=== PATIENT | female | born 1975 | race Caucasian/White ===

== ENCOUNTER 2017-08-07 08:07 | Inpatient (IN) ==
--- NOTE | 2017-08-06 17:27 | Discharge Summary ---
Addendum entered and electronically signed by Rainer Haddad MD 08/09/17 07: 50: Discharge held secondary to pain control discharged today, acute blood loss anemia secondary diagnosis Original Note: <Rainer Haddad - Last Filed: 08/08/17 08:23> Date of Encounter: 08/08/17 Time of Encounter: 08:23 - Discharge Diagnosis (1) Status post right knee replacement Priority: Primary Status: Acute (2) Osteoarthritis of right knee Priority: Primary Status: Chronic Qualifiers: Osteoarthritis type: unspecified Qualified Code(s): M17.11 - Unilateral primary osteoarthritis, right knee (3) HTN (hypertension) Priority: Secondary Status: Chronic Qualifiers: Hypertension type: unspecified Qualified Code(s): I10 - Essential (primary ) hypertension (4) HLD (hyperlipidemia) Priority: Secondary Status: Chronic Qualifiers: Hyperlipidemia type: unspecified Qualified Code(s): E78.5 - Hyperlipidemia , unspecified (5) COPD (chronic obstructive pulmonary disease) Priority: Secondary Status: Chronic Qualifiers: COPD type: unspecified COPD Qualified Code(s): J44.9 - Chronic obstructive pulmonary disease, unspecified (6) Tobacco abuse Priority: Secondary Status: Chronic (7) Bipolar disorder Priority: Secondary Status: Chronic Qualifiers: Active/Remission status: remission status unspecified Qualified Code(s): F31.9 - Bipolar disorder, unspecified (8) OAB (overactive bladder) Priority: Secondary Status: Chronic (9) Diabetes mellitus Priority: Secondary Status: Chronic Qualifiers: Diabetes mellitus type: type 2 Diabetes mellitus complication status: with unspecified complications Diabetes mellitus assisted insulin use: without emt intermediate use Qualified Code(s): E11.8 - Type 2 diabetes mellitus with unspecified complications (10) Acute blood loss anemia Priority: Primary Status: Acute - Discharge Medications Home Medications: OxyCODONE Immed Rel [Roxicodone 5 MG] 5 mg PO Q6HR PRN 7 Days #28 tablet [Rx] Amitriptyline [Elavil] 25 mg PO HS 08/07/17 [History] Atorvastatin [Lipitor] 40 mg PO HS 08/07/17 [History] Benzonatate [Tessalon] 100 - 200 mg PO TID PRN 08/07/17 [History] Benztropine [Cogentin] 0.5 mg PO HS 08/07/17 [History] Diclofenac Sodium 1 appl TP TID PRN 08/07/17 [History] Divalproex (12 HR) [Depakote (12 HR)] 500 mg PO BID 08/07/17 [History] Doxepin HCl 75 mg PO HS 08/07/17 [History] Fexofenadine HCl [Allergy Relief] 180 mg PO DAILY 08/07/17 [History] Fluticasone Propionate Nasal [Flonase] 2 spray NS BID 08/07/17 [History] Gabapentin [Neurontin] 300 mg PO HS 08/07/17 [History] HydrOXYzine Pamoate [Vistaril] 100 mg PO QID 08/07/17 [History] Ketoconazole 2% CRM [Nizoral Cream] 1 appl TP BID 08/07/17 [History] Lurasidone HCl [Latuda] 80 mg PO HS 08/07/17 [History] Mirabegron [Myrbetriq] 50 mg PO QAM 08/07/17 [History] Mometasone/Formoterol [Dulera 100 Mcg/5 Mcg Inhaler] 2 gm IH BID 08/07/17 [ History] Montelukast [Singulair] 10 mg PO DAILY 08/07/17 [History] Naproxen 500 mg PO BID PRN 08/07/17 [History] Onabotulinumtoxina [Botox] 0 unit IJ Q3M 08/07/17 [History] Pantoprazole Sodium 40 mg PO BID 08/07/17 [History] Pregabalin [Lyrica] 100 mg PO TID 08/07/17 [History] SUMAtriptan Succinate [Imitrex] 100 mg PO DAILY PRN MDD 200MG 08/07/17 [History] Triamcinolone Acetonide [Nasacort] 2 spr NS BID 08/07/17 [History] metFORMIN [Glucophage] 500 mg PO DAILY 08/07/17 [History] raNITIdine HCl [Ranitidine HCl] 300 mg PO HS 08/07/17 [History] Allergies/Adverse Reactions: 3 Allergy/AdvReac Type Severity Reaction Status Date / Time oxybutynin Allergy Swelling Verified 08/07/17 08:31 promethazine [From Phenergan] AdvReac Vomiting Verified 08/07/17 08:31 Primary care physician: Zoya Ocampo CNP - Patient Status Disposition: Home, Self-Care Condition: Good Functional capacity at discharge: uses cane/walker Overall status at discharge: patient is progressing back to baseline - Discharge Instructions Follow Up With: Rainer Haddad MD [Partnered Physician] - 09/03/17 9:55 am Monet Washburn PAC [Physician Showcase Maker] - 08/15/17 10:15 am (& also Saturday , August 23, 2017 at 10:45 AM) Ann Mondragon MD [Partnered Physician] - 01/13/18 2:00 pm Zoya Ocampo CNP [Primary Care Provider] - 08/16/17 11:15 am Additional Instructions: Discharge Instructions: Total Knee Replacement Please call [facility] ([phone]), your Primary Care Physician, or report to the Emergency Room if you have any of the following symptoms: Nausea, vomiting, fever greater that 101.5, swelling, chest pain, shortness of breath, increased pain/redness/drainage/odor for your incision site, numbness/ tingling, or any other concerning symptoms. ACTIVITY:Weight-bearing as tolerated. You may progress off support (crutches or walker) as tolerated. MEDICATIONS: Upon discharge resume your home medications. Take all the medications as prescribed. Take a stool softener if taking narcotic pain medications. Stool softeners are only effective if you drink enough fluids. Drink 6-8 glass of water or fluids a day, unless this is not allowed for another health problem. Despite using stool softeners, if you haven't had a bowel movement in 3 days, please switch to a gentle laxative. Gentle laxatives are sold over the counter. You should have a bowel movement within 24 hours, if not call the office. You will be discharged from the hospital with a prescription for pain medication. You are encouraged to decrease the use of narcotic pain medication as tolerated. Should you require a refill, please call the office. [facility] prescribes narcotic pain medication for only 4-6 weeks after surgery. If you require pain medication beyond this time period, you may be referred to your Primary Care Physician or to the Pain Clinic for further evaluation. Plan ahead for refills on pain medication as many narcotics either need to be picked up at the office or mailed. It is best to call 48-72 hours in advance of needing a prescription refill so you don't run out of medication. To help control the post-operative pain, you may take NSAIDs (Aleve,Advil, Motrin, Ibuprofen, Naprosyn) or Tylenol as prescribed on the bottle in addition to the pain medication. ANTICOAGULATION (blood thinners): Continue your Aspirin, Lovenox or Coumadin as prescribed to help prevent a blood clot in the leg or in the lungs. As long as your incision remains dry and you tolerate the NSAIDs (Aleve, Advil, Motrin, ibuprofen, naprosyn), it is OK to use the NSAIDS while you are taking your anticoagulation medication. Should your incision start to drain, stop the NSAID and contact our office. Common symptoms of blood clot in the legs include: localized pain, swelling, calf tenderness, redness or discoloration of the skin. Blood clot in the lung symptoms include: shortness of breath, rapid pulse, sweating, and chest pain that worsens with deep breathing, coughing up blood, lightheadedness, feelings of anxiety. If you experience any of these symptoms notify your physician immediately, go to the emergency room, or if having trouble breathing, call 911. WOUND CARE: Leave the dressing on for 7 to 10days. You may change the dressing if it becomes saturated greater than 50%. Do not get the dressing wet at anytime. Wash your hands with antibacterial soap, rinse and dry prior to any wound care. If you have hero the visiting nurse or rehab facility can remove the stapes 10-14 days after surgery and place steri-strips across the wound. Leave the steri-strips in place until they fall off on their won. You may let water from the shower run on top of the steri-strips. If you do not have a visiting nurse or rehab facility, you will need to return to the office at 10-14 days for the hero to be removed. If you have itching or redness around the dressing call the office. FOLLOW-UP: Please follow up with your surgeon in the orthopedic clinic in 4 weeks from the day of surgery. If you have hero that need to be removed, you will need to come back to the office in 10-14 days from the day of surgery. - Hospital Course Hospital course: Ms. Velasquez is a 42 year old female Status post right total knee replacement, hemoglobin 10.0 asymptomatic. The patient had an uneventful postoperative course. They received antibiotics and physical therapy and were discharged in stable condition. There will follow -up in the office in 2 weeks. - Time Spent with Patient Total time spent providing and/or coordinating discharge services: <Megan Berg - Last Filed: 08/09/17 19:26> Date of Encounter: 08/09/17 - Discharge Diagnosis (1) Osteoarthritis of right knee Priority: Primary Status: Chronic Qualifiers: Osteoarthritis type: unspecified Qualified Code(s): M17.11 - Unilateral primary osteoarthritis, right knee (2) HTN (hypertension) Priority: Secondary Status: Chronic Qualifiers: Hypertension type: unspecified Qualified Code(s): I10 - Essential (primary ) hypertension (3) HLD (hyperlipidemia) Priority: Secondary Status: Chronic Qualifiers: Hyperlipidemia type: unspecified Qualified Code(s): E78.5 - Hyperlipidemia , unspecified (4) COPD (chronic obstructive pulmonary disease) Priority: Secondary Status: Chronic Qualifiers: COPD type: unspecified COPD Qualified Code(s): J44.9 - Chronic obstructive pulmonary disease, unspecified (5) Tobacco abuse Priority: Secondary Status: Chronic (6) Bipolar disorder Priority: Secondary Status: Chronic Qualifiers: Active/Remission status: remission status unspecified Qualified Code(s): F31.9 - Bipolar disorder, unspecified (7) OAB (overactive bladder) Priority: Secondary Status: Chronic (8) Diabetes mellitus Priority: Secondary Status: Chronic Qualifiers: Diabetes mellitus type: type 2 Diabetes mellitus complication status: with unspecified complications Diabetes mellitus emt intermediate insulin use: without assisted use Qualified Code(s): E11.8 - Type 2 diabetes mellitus with unspecified complications Primary care physician: Zoya Ocampo CNP - Hospital Course Hospital course: Ms. Velasquez is a 42 year old female - Time Spent with Patient Total time spent providing and/or coordinating discharge services: - VTE Documentation of Mechanical Device: Venous foot pump, device
--- NOTE | 2017-08-07 08:14 | History & Physical Report ---
Date of Encounter: 08/07/17 Time of Encounter: 08:13 24 Hour HP Update - Instructions Instructions: If the History and Physical is less than 30 days old and was completed prior to A.M. admission and or procedure and has NOT been updated on calendar day of procedure please complete this update prior to performing procedure. - Update Patient reports changes in Medical Condition: No Changes in examination, assessment, or condition: No Changes in Medication: No Preop tests/diagnostics Reviewed: Yes Surgery Remains Indicated: Yes Consent for Planned Operative Procedure(s) Verified: Yes - Pre-Operative Checklist Preoperative Checklist Indicated: No Prophylactic Antibiotic Ordered: Yes Is VTE Prophylaxis Indicated?: Yes
[2017-08-07] MEDS ORDERED: Lidocaine -MPF 4% 5 ML AMPUL ONE (08:18)
[2017-08-07] MEDS ORDERED: Lidocaine -MPF 2% 2 ML VIAL ONE (08:18)
[2017-08-07] MEDS ORDERED: *HR* FentaNYL (PF) 100 MCG/2 ML VIAL ONE (08:18)
[2017-08-07] MEDS ORDERED: Ondansetron 4 MG/2 ML VIAL ONE (08:18)
[2017-08-07] MEDS ORDERED: Dexamethasone 4 MG/ML VIAL ONE (08:18)
[2017-08-07] MEDS ORDERED: *HR* Propofol 200 MG/20 ML VIAL IVP ONE (08:19)
[2017-08-07] MEDS ORDERED: CeFAZolin Pre 2,000 MG/100 ML 2,000 MG/100 ML BAG IVPB ONE (08:36)
[2017-08-07] MEDS ORDERED: Lidocaine -MPF 1% 2 ML VIAL ID ONE (08:36)
[2017-08-07] MEDS ORDERED: Albuterol 2.5 MG/3 ML NEBULIZER IH ONE (08:36)
[2017-08-07] MEDS ORDERED: Ringers Solution, Lactated 1,000 ML IVC SCH ×2 (08:45→12:56)
--- NOTE | 2017-08-07 08:47 | Anesthesia Evaluation PreOp ---
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: Denies Any Significant HX Other Medical History: Diabetes Type II, GERD, Other (bipolar) Anesthesia History: No Prior Anesthetic Complications, Past Anesthesia Test: Negative (08/07/2017) Alcohol Use: none Drug use: none Medications and Allergies OxyCODONE Immed Rel [Roxicodone 5 MG] 5 mg PO Q6HR PRN 7 Days #28 tablet [Rx] Amitriptyline [Elavil] 25 mg PO HS 08/07/17 [History] Atorvastatin [Lipitor] 40 mg PO HS 08/07/17 [History] Benzonatate [Tessalon] 100 - 200 mg PO TID PRN 08/07/17 [History] Benztropine [Cogentin] 0.5 mg PO HS 08/07/17 [History] Diclofenac Sodium 1 appl TP TID PRN 08/07/17 [History] Divalproex (12 HR) [Depakote (12 HR)] 500 mg PO BID 08/07/17 [History] Doxepin HCl 75 mg PO HS 08/07/17 [History] Fexofenadine HCl [Allergy Relief] 180 mg PO DAILY 08/07/17 [History] Fluticasone Propionate Nasal [Flonase] 2 spray NS BID 08/07/17 [History] Gabapentin [Neurontin] 300 mg PO HS 08/07/17 [History] HydrOXYzine Pamoate [Vistaril] 100 mg PO QID 08/07/17 [History] Ketoconazole 2% CRM [Nizoral Cream] 1 appl TP BID 08/07/17 [History] Lurasidone HCl [Latuda] 80 mg PO HS 08/07/17 [History] Mirabegron [Myrbetriq] 50 mg PO QAM 08/07/17 [History] Mometasone/Formoterol [Dulera 100 Mcg/5 Mcg Inhaler] 2 gm IH BID 08/07/17 [ History] Montelukast [Singulair] 10 mg PO DAILY 08/07/17 [History] Naproxen 500 mg PO BID PRN 08/07/17 [History] Onabotulinumtoxina [Botox] 0 unit IJ Q3M 08/07/17 [History] Pantoprazole Sodium 40 mg PO BID 08/07/17 [History] Pregabalin [Lyrica] 100 mg PO TID 08/07/17 [History] SUMAtriptan Succinate [Imitrex] 100 mg PO DAILY PRN MDD 200MG 08/07/17 [History] Triamcinolone Acetonide [Nasacort] 2 spr NS BID 08/07/17 [History] metFORMIN [Glucophage] 500 mg PO DAILY 08/07/17 [History] raNITIdine HCl [Ranitidine HCl] 300 mg PO HS 08/07/17 [History] 3 Allergy/AdvReac Type Severity Reaction Status Date / Time oxybutynin Allergy Swelling Verified 08/07/17 08:31 promethazine [From Phenergan] AdvReac Vomiting Verified 08/07/17 08:31 - Meds/Allergy Pre-op Review Medications Reviewed: Yes Allergies Reviewed: Yes Beta Blockers on Current Med List: No Anesthesia Results - Labs Laboratory Tests 07/29/17 07/29/17 07/29/17 11:52 11:52 11:52 WBC 9.5 Hgb 13.3 Hct 38.8 Plt Count 333 PT 10.6 INR 1.0 APTT 36.9 H Sodium 141 Potassium 4.5 BUN 8 Creatinine 0.99 Serum , Qual 07/29/17 11:52 WBC Hgb Hct Plt Count PT INR APTT Sodium Potassium BUN Creatinine Serum , Qual Negative - Imaging EKG: report reviewed (07/29/2017 SINUS RHYTHM POSSIBLE RIGHT VENTRICULAR CONDUCTION DELAY) Anesthesia Exam O2 Sat Height 1.6 m Height 1.6 m Height 1.6 m Weight 68.039 kg Weight 68.039 kg Weight 68.039 kg O2 Sat by Pulse Oximetry 95 Vital Signs Temp Pulse Resp BP Pulse Ox 98.4 F 98 18 115/73 95 08/07/17 09:10 08/07/17 09:10 08/07/17 09:10 08/07/17 09:10 08/07/17 09:10 Blood glucose: 73 Height: 5'3'' Weight: 150 lbs NPO (# of Hours): 8 Pain Scale: 4 Pain Scale Used: Numeric (1 - 10) - HEENT Pupil (Motor): EOMI Mallampati: II Teeth: Edentulous Oral Opening: Greater than 3 - VIROLOGY TEACHER LOC: Oriented VIROLOGY TEACHER Motor: Normal RUE, Normal LUE, Normal LLE, Normal Face, Deficit RLE VIROLOGY TEACHER Sensory: Normal: RUE, LUE, RLE, LLE, Face - Cardiac Rhythm: Regular Murmur: None - Pulmonary Breath Sounds: bilateral Clear Respiratory Effort: Symmetrical Anesthesia Assess/Plan ASA Score: 3 Modified Nicolás Scale for Level of Consciousness: Cooperative, oriented, and tranquil Anesthetic Plan: General, Regional Monitoring Plan: Standard Monitors Recovery Plan: PACU
[2017-08-07] MEDS ORDERED: ROPIVACAINE HCL/PF 0.5% 30 ML VIAL ONE (09:50)
[2017-08-07] MEDS ORDERED: Bupivacaine/Clonidine Syringe 1 EACH SYRINGE ONE (09:50)
[2017-08-07] MEDS ORDERED: Ethanol\\Acetic Acid\\Na Ace\\Ben 1,000 ML IRRIG.SOLN IR ONE (09:56)
--- NOTE | 2017-08-07 10:08 | Anesthesia Procedures ---
Date of Encounter: 08/07/17 Time of Encounter: 09:50 Procedures: Anesthesia - Nerve Block Procedure Date: 08/07/17 Time: 09:50 Allergies/Adv Reactions: Allergies Allergy/AdvReac Type Severity Reaction Status Date / Time oxybutynin Allergy Swelling Verified 08/07/17 08:31 promethazine [From Phenergan] AdvReac Vomiting Verified 08/07/17 08:31 Pre-op Diagnosis: Right Knee Arthritis Surgical Procedure: Right Total Knee Arthroplasty Checklist: Correct Patient Identifier, Correct procedure, History checked Correct side: Right Blood Thinner: No Monitor Applied: EKG, BP, Pulse Oximetry Supplemental Oxygen via Nasal Cannula (L/min): 2 Sedation: Versed (mg): 2 Sedation: Fentanyl (mcg): 100 Indication: Post Op Analgesia Pre-op Neuro Deficits: No Block Type: Femoral, Other (iPack) Catheter placed: No Sterile Technique: Yes Ultrasound used: Yes Anatomy identified: Yes Visual spread of Local: Yes Neuro Stimulation: Yes Nerve Stimulator Range: 0.2 - 0.4 mA Blood on Needle Aspiration: No Smooth Injection of Local: Yes Pain with Injection of Local: No Prep: Chlorhexadine Needle: 22 x 50 mm Stimuplex (Femoral), 21 x 100 mm Stimuplex (Ipack) Local: 0.25% Bupivicaine w/Clonidine 20 mcg/cc (20mL iPack), Ropivacaine (0.5% 30mL) Volume (cc): 50 Number of Attempts: 1 Complications: None/effective block Vitals: VSS throughout. See nursing documentation. Comments: Verbal order Dr Haddad for post op pain management. Patient tolerated well.
[2017-08-07] MEDS ORDERED: Ondansetron 4 MG/2 ML VIAL IVP PRN ×2 (10:12→12:56)
[2017-08-07] MEDS ORDERED: *HR* Meperidine 25 MG/ML SYRINGE IVP PRN (10:12)
[2017-08-07] MEDS ORDERED: Naloxone 0.4 MG/ML INJ IVP PRN ×2 (10:12→12:56)
[2017-08-07] MEDS ORDERED: *HR* Succinylcholine 200 MG/10 ML VIAL IVP ONE (10:58)
[2017-08-07] MEDS ORDERED: *HR* HYDROmorphone 2 MG/ML SYRINGE ONE (11:01)
--- NOTE | 2017-08-07 11:24 | Orthopedic Operative Note ---
Date of procedure: 08/07/17 Pre-op diagnosis: Right knee arthritis Post-op diagnosis: same Procedure: Procedure: Right Total knee replacement Estimated blood loss: 200 cc Hardware: Metal and polyethylene replacement. Arthrex Femur: 3 Tibia: 2 PS insert: 9 Patella: 30 Exam Under anesthesia: Full flexion and extension no instability Procedural Notes: Grade 3 arthritic changes patellofemoral joint medial compartment Operative procedure: The patient was brought to the operating room and placed on the operating room table. After general anesthesia was administered the operative knee was examined. Findings were noted in the exam under anesthesia. The operative extremity was prepped and draped in sterile surgical fashion. The patient received IV antibiotics prior to skin incision. A standard midline incision was made centered over the patella. The incision was made through the skin and subcutaneous tissue. A medial parapatellar tendon approach was performed. Care was taken to preserve tissue along the medial aspect of the patella. And to protect the patella tendon. The deep MCL was released off the medial tibia. The infra patella fat pad was excised. Knee was brought into flexion. The patient was noted to have grade 3 arthritic changes patellofemoral joint medial compartment. The entry hole was made for the intramedullary femoral guide. The guide was seated in 6 degrees of valgus. Anterior cut was made followed by the distal cut. The ACL the PCL the medial and the lateral menisci were excised. The tibia was subluxed forward. The entry hole was made for the intramedullary tibial guide. Guide was seated to resect 2 mm off the more abnormal side. The knee was brought into flexion the distal femur was sized to a 3. The femoral guide was seated, the anterior cut was made followed by the posterior condylar cut, followed by the chamfer cuts. The finishing guide was seated the box cut was made and the lug holes were drilled. The tibia was sized to a 2, the tibial tray was seated and prepared with the large drill followed by the fin cutter. Trial reduction revealed full extension no varus valgus instability with the appropriate 9 PS Kayleigh. The patella was everted and cut was made at the level of the insertion of the quadriceps and patella tendon. The patella was sized 30 the guide was seated and the lug holes are drilled. Trial reduction revealed excellent patella tracking. All trial components were removed all bony surfaces were irrigated. The tibia was cemented first followed by the femur. The 9 PS Kayleigh was seated and the knee was brought into full extension. The patella was cemented and held in place with the patellar holding clamp. After the cement had hardened, the knee sat for 2 minutes with a Betadine saline solution. The knee was closed by the PA. The knee was then irrigated out with 2 L of pulse irrigation. The extensor mechanism was closed with #2 FiberWire suture and #2 PDS suture. The subcutaneous tissue was then irrigated and closed deep with #1 PDS suture superficially with 0 PDS suture and skin was closed with skin hero. The patient was then placed in a sterile dressing and a postoperative brace extubated and transferred to recovery room in stable condition. Anesthesia: GETA Surgeon: Rainer Haddad Condition: stable Disposition: PACU
[2017-08-07] MEDS: *HR* HYDROmorphone (PF) 1 MG/ML SYRINGE IVP PRN ×3 (12:25→13:36)
--- NOTE | 2017-08-07 12:50 | Anesthesia Evaluation Post Op ---
Date of Encounter: 08/07/17 Time of Encounter: 12:50 - Vital Signs Vital Signs: Vital Signs/O2 Sat/Glucose, Most Recent Temp Pulse Resp BP Pulse Ox 98.3 F 116 12 97/77 96 08/07/17 12:30 08/07/17 12:40 08/07/17 12:40 08/07/17 12:40 08/07/17 12:40 Blood Glucose* 103 - Lungs Lungs: Clear Ascult./Percussion - Airway Airway: Non-obstructed - Cardiovascular Regular Rate - Mental Status Mental Status: Alert & Oriented, Answers Appropriately - Pain Pain Scale: 3 Pain Scale used: Numeric (1 - 10) - Nausea Vomiting Nausea Vomiting: Not Present - Hydration Hydration: Tolerates oral liquids - Discharge PostOp Status: Discharge Patient to home
[2017-08-07] MEDS ORDERED: Dextrose Gel 15 GM PO PRN ×2 (12:56)
[2017-08-07] MEDS ORDERED: *HR* OxyCODONE Immed Rel 5 MG TABLET PO PRN (12:56)
[2017-08-07] MEDS ORDERED: SUMAtriptan succinate 50 MG TABLET PO PRN (12:56)
[2017-08-07] MEDS ORDERED: Benzonatate 100 MG CAPSULE PO PRN (12:56)
[2017-08-07] MEDS ORDERED: *HR* Dextrose 50 % in Water (Syg) 50 ML SYRINGE IVP PRN (12:56)
[2017-08-07] MEDS ORDERED: D5% in Water 1,000 ML IVC PRN (12:56)
[2017-08-07] MEDS: hydrOXYzine pamoate 25 MG CAPSULE PO SCH ×3 (13:36→22:52)
[2017-08-07] MEDS: Insulin LISPRO 300 UNITS/3 ML VIAL SQ SCH ×3 (13:37→21:22)
[2017-08-07 13:54] LABS: Hematocrit 34.9 % (35.3-44.9); Hemoglobin 11.9 g/dL (11.5-15.4)
[2017-08-07] MEDS: Pregabalin 50 MG CAPSULE PO SCH ×2 (15:02→20:56)
[2017-08-07] MEDS: *HR* Enoxaparin 30 MG/0.3 ML SYRINGE SQ SCH (16:26)
[2017-08-07] MEDS: ceFAZolin 2,000 MG in D5% in Water 100 ML IVPB SCH ×2 (16:27→23:07)
[2017-08-07] MEDS: [UNRECOGNIZED DRUG - MIXTURE] TP SCH ×2 (16:28→21:06)
[2017-08-07] MEDS: *HR* OxyCODONE Immed Rel 5 MG TABLET PO PRN ×2 (16:46→22:27)
[2017-08-07] MEDS ORDERED: *HR* Enoxaparin 30 MG/0.3 ML SYRINGE SQ SCH (18:00)
[2017-08-07] MEDS: Chloraseptic Spray 177 ML BOTTLE MM PRN (18:36)
[2017-08-07] MEDS: Famotidine 20 MG TABLET PO SCH (20:56)
[2017-08-07] MEDS: Gabapentin 300 MG CAPSULE PO SCH (20:57)
[2017-08-07] MEDS: Divalproex (12 HR) 500 MG TABLET PO SCH (20:57)
[2017-08-07] MEDS ORDERED: Sennosides 8.6 MG TABLET PO PRN (21:00)
[2017-08-07] MEDS ORDERED: Temazepam 15 MG CAPSULE PO PRN (21:00)
[2017-08-07] MEDS ORDERED: MOM Conc 10 ML UD.LIQ PO PRN (21:00)
[2017-08-07] MEDS: Fluticasone Propionate Nasal 50 MCG/SPRAY BOTTLE NS SCH ×2 (21:01→22:30)
[2017-08-07] MEDS: Ketoconazole 2% CRM 15 GM TUBE TP SCH (21:02)
[2017-08-07] MEDS: Ipratropium/Albuterol Neb 3 ML IH SCH (21:20)
[2017-08-08] MEDS: Ipratropium/Albuterol Neb 3 ML IH SCH ×4 (03:30→21:47)
[2017-08-08] MEDS: *HR* OxyCODONE Immed Rel 5 MG TABLET PO PRN ×4 (04:02→21:33)
[2017-08-08 05:06] LABS: Hematocrit 29.8 % (35.3-44.9)
[2017-08-08 05:17] LABS: BUN/Creatinine Ratio 14 (6-26); Blood Urea Nitrogen 13 mg/dL (7-20); Calcium 9.2 mg/dL (8.6-10.8); Carbon Dioxide 26 mEq/L (19-29); Chloride 100 mEq/L (98-109); Glucose 113 mg/dL (70-99); Osmolality,Calculated 285 (280-300); Potassium 4.7 mEq/L (3.5-4.5); Sodium 137 mEq/L (136-145); eGFR For African Americans > 60 (> 60); eGFR For Non-African Americans > 60 (> 60)
[2017-08-08] MEDS: *HR* Enoxaparin 30 MG/0.3 ML SYRINGE SQ SCH ×2 (05:43→17:03)
[2017-08-08] MEDS: Insulin LISPRO 300 UNITS/3 ML VIAL SQ SCH ×4 (08:21→21:37)
--- NOTE | 2017-08-08 08:25 | Orthopedics Progress Note ---
Date of Encounter: 08/08/17 Time of Encounter: 08:24 - Assessment and Plan (1) Status post right knee replacement Current Visit: Yes Status: Acute (2) Osteoarthritis of right knee Current Visit: No Status: Chronic Qualifiers: Osteoarthritis type: unspecified Qualified Code(s): M17.11 - Unilateral primary osteoarthritis, right knee (3) HTN (hypertension) Current Visit: No Status: Chronic Qualifiers: Hypertension type: unspecified Qualified Code(s): I10 - Essential (primary ) hypertension (4) HLD (hyperlipidemia) Current Visit: No Status: Chronic Qualifiers: Hyperlipidemia type: unspecified Qualified Code(s): E78.5 - Hyperlipidemia , unspecified (5) COPD (chronic obstructive pulmonary disease) Current Visit: No Status: Chronic Qualifiers: COPD type: unspecified COPD Qualified Code(s): J44.9 - Chronic obstructive pulmonary disease, unspecified (6) Tobacco abuse Current Visit: No Status: Chronic (7) Bipolar disorder Current Visit: No Status: Chronic Qualifiers: Active/Remission status: remission status unspecified Qualified Code(s): F31.9 - Bipolar disorder, unspecified (8) OAB (overactive bladder) Current Visit: No Status: Chronic (9) Diabetes mellitus Current Visit: No Status: Chronic Qualifiers: Diabetes mellitus type: type 2 Diabetes mellitus complication status: with unspecified complications Diabetes mellitus intermediate manager insulin use: without intermediate manager use Qualified Code(s): E11.8 - Type 2 diabetes mellitus with unspecified complications (10) Acute blood loss anemia Current Visit: Yes Status: Acute Subjective Interval history: Patient was seen this morning doing well without complaints. Afebrile vital signs stable. Operative extremity: Neurovascularly intact Dressing clean dry and intact Calves nontender Assessment and plan: Continue with postoperative care Hemoglobin 10 discharged today Objective Vital signs: Vital Signs Temp Pulse Resp BP Pulse Ox 08/08/17 07:29 97.9 F 113 16 111/75 92 08/08/17 03:58 97.9 F 106 18 127/82 93 08/07/17 23:05 98.4 F 108 18 122/78 93 08/07/17 21:23 18 90 08/07/17 20:56 93 08/07/17 18:51 98 F 110 18 135/75 93 08/07/17 16:00 98.4 F 114 18 112/75 93 08/07/17 15:07 98.2 F 119 18 114/65 91 08/07/17 14:27 97.5 F L 114 18 107/74 94 08/07/17 13:31 98.2 F 117 18 112/69 95 08/07/17 13:07 98.1 F 117 16 118/78 93 08/07/17 13:06 98.1 F 117 16 118/78 91 08/07/17 12:50 97.4 F L 112 11 117/85 95 08/07/17 12:40 116 12 97/77 96 08/07/17 12:30 98.3 F 112 14 119/85 97 08/07/17 12:20 115 12 131/88 95 08/07/17 12:10 117 19 126/75 94 08/07/17 12:00 98.7 F 112 16 129/98 100 08/07/17 10:07 102 17 110/73 99 08/07/17 09:35 102 15 118/80 91 08/07/17 09:10 98.4 F 98 18 115/73 95 Intake and Output 08/07/17 08/08/17 08/08/17 23:59 07:59 15:59 Intake Total 600 / 600 1999 / 2000 Output Total 1400 / 1400 400 / 400 Balance -800 / -800 1600 / 1600 Intake: IV Fluids 600 / 600 Lactated Ringers 1,000 ML @ 25 400 / 400 mls/hr IVC .Q24H ROX Rx#: [id number] Ancef 2,000 MG In Dextrose 5% 200 / 200 100 ML @ 200 mls/hr IVPB Q8HR ROX Rx#:[id number] Oral 0 / 0 1999 / 1999 Output: Urine 1400 / 1400 400 / 400 Other: Weight 70 kg Blood Glucose* 176 72 Patient Weight 08/08/17 23:59 Weight 70 kg - Labs CBC & BMP: 08/08/17 04:41 08/08/17 04:41 Labs: Abnormal lab results Hgb 10.0 g/dL (11.5-15.4) L D 08/08/17 04:41 Hct 29.8 % (35.3-44.9) L 08/08/17 04:41 Potassium 4.7 mEq/L (3.5-4.5) H 08/08/17 04:41 Glucose 113 mg/dL (70-99) H 08/08/17 04:41 POC Glucose 176 (58-89) H 08/07/17 20:30 - VTE Documentation of Mechanical Device: Venous foot pump, device Consult Discharge Plan - Plan Referrals: Zoya Ocampo CNP [Primary Care Provider] -
[2017-08-08] MEDS: hydrOXYzine pamoate 25 MG CAPSULE PO SCH ×4 (09:04→21:27)
[2017-08-08] MEDS: *HR* Metformin 500 MG TABLET PO SCH (09:05)
[2017-08-08] MEDS: Pregabalin 50 MG CAPSULE PO SCH ×3 (09:06→21:25)
[2017-08-08] MEDS: Loratadine 10 MG TABLET PO SCH (09:07)
[2017-08-08] MEDS: Divalproex (12 HR) 500 MG TABLET PO SCH ×2 (09:07→21:26)
[2017-08-08] MEDS: Fluticasone Propionate Nasal 50 MCG/SPRAY BOTTLE NS SCH ×4 (09:13→21:48)
[2017-08-08] MEDS: Ketoconazole 2% CRM 15 GM TUBE TP SCH ×2 (09:14→21:49)
[2017-08-08] MEDS: [UNRECOGNIZED DRUG - MIXTURE] TP SCH ×4 (09:14→21:49)
[2017-08-08] MEDS: (Mirabegron [Myrbetriq] 50 MG) PO SCH (09:15)
[2017-08-08] MEDS: *HR* HYDROmorphone (PF) 1 MG/ML SYRINGE IVP PRN ×2 (10:47→17:03)
[2017-08-08] MEDS: Chloraseptic Spray 177 ML BOTTLE MM PRN (11:00)
--- NOTE | 2017-08-08 16:59 | Event Note ---
Date of Encounter: 08/08/17 Time of Encounter: 13:00 PCR - Right TKR 08/07 Labs: Stable, monitoring H/H Patient seen at bedside. Pain control: Continues IV pain medication. Participating in PT. All questions and concerns addressed. Educated on use of incentive spirometer, ambulation, and hydration. Patient educated on post-operative restrictions and care. Addressed: See above D/C plan: Home Health - established, continuity completed Patient wanting to go home today; however due to her pain level; she will stay tonight and D/C tomorrow AM after PT.
[2017-08-08] MEDS: Famotidine 20 MG TABLET PO SCH (21:26)
[2017-08-08] MEDS: Gabapentin 300 MG CAPSULE PO SCH (21:26)
[2017-08-09 04:04] LABS: Hemoglobin 8.9 g/dL (11.5-15.4)
[2017-08-09 04:05] LABS: BUN/Creatinine Ratio 12 (6-26); Blood Urea Nitrogen 10 mg/dL (7-20); Calcium 8.8 mg/dL (8.6-10.8); Carbon Dioxide 27 mEq/L (19-29); Chloride 100 mEq/L (98-109); Glucose 109 mg/dL (70-99); Osmolality,Calculated 282 (280-300); Potassium 3.5 mEq/L (3.5-4.5); Sodium 136 mEq/L (136-145); eGFR For African Americans > 60 (> 60); eGFR For Non-African Americans > 60 (> 60)
[2017-08-09] MEDS: Ipratropium/Albuterol Neb 3 ML IH SCH ×4 (04:26→22:30)
[2017-08-09] MEDS: *HR* Enoxaparin 30 MG/0.3 ML SYRINGE SQ SCH ×2 (05:08→17:03)
[2017-08-09] MEDS: *HR* OxyCODONE Immed Rel 5 MG TABLET PO PRN ×4 (05:09→23:43)
--- NOTE | 2017-08-09 07:52 | Orthopedics Progress Note ---
Date of Encounter: 08/09/17 Time of Encounter: 07:51 - Assessment and Plan (1) Status post right knee replacement Current Visit: Yes Status: Acute (2) Osteoarthritis of right knee Current Visit: No Status: Chronic Qualifiers: Osteoarthritis type: unspecified Qualified Code(s): M17.11 - Unilateral primary osteoarthritis, right knee (3) HTN (hypertension) Current Visit: No Status: Chronic Qualifiers: Hypertension type: unspecified Qualified Code(s): I10 - Essential (primary ) hypertension (4) HLD (hyperlipidemia) Current Visit: No Status: Chronic Qualifiers: Hyperlipidemia type: unspecified Qualified Code(s): E78.5 - Hyperlipidemia , unspecified (5) COPD (chronic obstructive pulmonary disease) Current Visit: No Status: Chronic Qualifiers: COPD type: unspecified COPD Qualified Code(s): J44.9 - Chronic obstructive pulmonary disease, unspecified (6) Tobacco abuse Current Visit: No Status: Chronic (7) Bipolar disorder Current Visit: No Status: Chronic Qualifiers: Active/Remission status: remission status unspecified Qualified Code(s): F31.9 - Bipolar disorder, unspecified (8) OAB (overactive bladder) Current Visit: No Status: Chronic (9) Diabetes mellitus Current Visit: No Status: Chronic Qualifiers: Diabetes mellitus type: type 2 Diabetes mellitus complication status: with unspecified complications Diabetes mellitus test skein winder insulin use: without test skein winder use Qualified Code(s): E11.8 - Type 2 diabetes mellitus with unspecified complications (10) Acute blood loss anemia Current Visit: Yes Status: Acute Subjective Interval history: Patient was seen this morning doing well without complaints. Afebrile vital signs stable. Operative extremity: Neurovascularly intact Dressing clean dry and intact Calves nontender Assessment and plan: Continue with postoperative care Hemoglobin 8.9 charge held yesterday secondary to pain control, discharged today Objective Vital signs: Vital Signs Temp Pulse Resp BP Pulse Ox 08/09/17 07:30 98.4 F 122 14 124/85 95 08/09/17 04:27 17 91 08/09/17 00:16 98.4 F 125 20 117/80 91 08/08/17 19:54 97.9 F 128 18 129/79 91 08/08/17 16:49 97.1 F L 89 16 129/79 96 08/08/17 12:39 97.7 F 96 14 118/71 93 08/08/17 11:05 16 90 Intake and Output 08/08/17 08/08/17 08/09/17 15:59 23:59 07:59 Intake Total 500 / 500 560 / 560 50 / 50 Output Total 450 / 450 Balance 50 / 50 560 / 560 50 / 50 Intake: Oral 500 / 500 560 / 560 50 / 50 Output: Urine 450 / 450 Other: Meal Dinner Percent of Meal Consumed 75% # Voids 1 Blood Glucose* 59 198 118 - Labs CBC & BMP: 08/09/17 03:35 08/09/17 03:35 Labs: Abnormal lab results Hgb 8.9 g/dL (11.5-15.4) L 08/09/17 03:35 Hct 26.0 % (35.3-44.9) L 08/09/17 03:35 Glucose 109 mg/dL (70-99) H 08/09/17 03:35 - VTE Documentation of Mechanical Device: Venous foot pump, device Consult Discharge Plan - Plan Additional Instructions: Discharge Instructions: Total Knee Replacement Please call [facility] ([phone]), your Primary Care Physician, or report to the Emergency Room if you have any of the following symptoms: Nausea, vomiting, fever greater that 101.5, swelling, chest pain, shortness of breath, increased pain/redness/drainage/odor for your incision site, numbness/ tingling, or any other concerning symptoms. ACTIVITY:Weight-bearing as tolerated. You may progress off support (crutches or walker) as tolerated. MEDICATIONS: Upon discharge resume your home medications. Take all the medications as prescribed. Take a stool softener if taking narcotic pain medications. Stool softeners are only effective if you drink enough fluids. Drink 6-8 glass of water or fluids a day, unless this is not allowed for another health problem. Despite using stool softeners, if you haven't had a bowel movement in 3 days, please switch to a gentle laxative. Gentle laxatives are sold over the counter. You should have a bowel movement within 24 hours, if not call the office. You will be discharged from the hospital with a prescription for pain medication. You are encouraged to decrease the use of narcotic pain medication as tolerated. Should you require a refill, please call the office. [facility] prescribes narcotic pain medication for only 4-6 weeks after surgery. If you require pain medication beyond this time period, you may be referred to your Primary Care Physician or to the Pain Clinic for further evaluation. Plan ahead for refills on pain medication as many narcotics either need to be picked up at the office or mailed. It is best to call 48-72 hours in advance of needing a prescription refill so you don't run out of medication. To help control the post-operative pain, you may take NSAIDs (Aleve,Advil, Motrin, Ibuprofen, Naprosyn) or Tylenol as prescribed on the bottle in addition to the pain medication. ANTICOAGULATION (blood thinners): Continue your Aspirin, Lovenox or Coumadin as prescribed to help prevent a blood clot in the leg or in the lungs. As long as your incision remains dry and you tolerate the NSAIDs (Aleve, Advil, Motrin, ibuprofen, naprosyn), it is OK to use the NSAIDS while you are taking your anticoagulation medication. Should your incision start to drain, stop the NSAID and contact our office. Common symptoms of blood clot in the legs include: localized pain, swelling, calf tenderness, redness or discoloration of the skin. Blood clot in the lung symptoms include: shortness of breath, rapid pulse, sweating, and chest pain that worsens with deep breathing, coughing up blood, lightheadedness, feelings of anxiety. If you experience any of these symptoms notify your physician immediately, go to the emergency room, or if having trouble breathing, call 911. WOUND CARE: Leave the dressing on for 7 to 10days. You may change the dressing if it becomes saturated greater than 50%. Do not get the dressing wet at anytime. Wash your hands with antibacterial soap, rinse and dry prior to any wound care. If you have hero the visiting nurse or rehab facility can remove the stapes 10-14 days after surgery [address] steri-strips across the wound. Leave the steri-strips in place until they fall off on their won. You may let water from the shower run on top of the steri-strips. If you do not have a visiting nurse or rehab facility, you will need to return to the office at 10-14 days for the hero to be removed. If you have itching or redness around the dressing call the office. FOLLOW-UP: Please follow up with your surgeon in the orthopedic clinic in 4 weeks from the day of surgery. If you have hero that need to be removed, you will need to come back to the office in 10-14 days from the day of surgery. Referrals: Rainer Haddad MD [Partnered Physician] - 09/03/17 9:55 am Monet Washburn PAC [Physician Facing Cutting Machine Operator] - 08/15/17 10:15 am (& also Saturday , August 23, 2017 at 10:45 AM) Ann Mondragon MD [Partnered Physician] - 01/13/18 2:00 pm Zoya Ocampo CNP [Primary Care Provider] - 08/16/17 11:15 am
[2017-08-09] MEDS ORDERED: 0.9 % Sodium Chloride 500 ML IVC ONE (08:10)
[2017-08-09] MEDS ORDERED: 0.9 % Sodium Chloride 500 ML ONE (08:18)
[2017-08-09] MEDS: Insulin LISPRO 300 UNITS/3 ML VIAL SQ SCH ×4 (08:27→21:23)
[2017-08-09] MEDS: Fluticasone Propionate Nasal 50 MCG/SPRAY BOTTLE NS SCH ×4 (08:32→21:23)
[2017-08-09] MEDS: Loratadine 10 MG TABLET PO SCH (08:32)
[2017-08-09] MEDS: Ketoconazole 2% CRM 15 GM TUBE TP SCH ×2 (08:33→21:21)
[2017-08-09] MEDS: Pregabalin 50 MG CAPSULE PO SCH ×3 (08:33→21:20)
[2017-08-09] MEDS: (Mirabegron [Myrbetriq] 50 MG) PO SCH (08:33)
[2017-08-09] MEDS: *HR* Metformin 500 MG TABLET PO SCH (08:33)
[2017-08-09] MEDS: [UNRECOGNIZED DRUG - MIXTURE] TP SCH ×4 (08:33→21:22)
[2017-08-09] MEDS: hydrOXYzine pamoate 25 MG CAPSULE PO SCH ×4 (08:33→21:06)
[2017-08-09] MEDS: Divalproex (12 HR) 500 MG TABLET PO SCH ×2 (08:34→21:21)
[2017-08-09 08:47] LABS: Basophils % 0.2 %; Eosinophils % 0.2 %; Hematocrit 25.4 % (35.3-44.9); Hemoglobin 8.9 g/dL (11.5-15.4); Immature Granulocytes % 0.4 % (0-4); Lymphocytes # 3.4 K/mcL (0.6-4.6); Lymphocytes % 29.4 %; Mean Corpuscular Hemoglobin 30.9 pg (28.0-33.3); Mean Corpuscular Volume 88.2 fL (83.0-100.0); Mean Platelet Volume 9.6 fL (9.4-12.4); Monocytes # 1.1 K/mcL (0.0-1.3); Monocytes % 9.7 %; Neutrophils # 6.9 K/mcL (1.6-8.9); Platelet Count 241 K/mcL (140-400); Red Blood Count 2.88 M/mcL (3.82-4.97); Segmented Neutrophils % 60.1 %
[2017-08-09 08:58] LABS: BUN/Creatinine Ratio 12 (6-26); Blood Urea Nitrogen 10 mg/dL (7-20); Calcium 8.7 mg/dL (8.6-10.8); Carbon Dioxide 26 mEq/L (19-29); Chloride 101 mEq/L (98-109); Glucose 95 mg/dL (70-99); Osmolality,Calculated 281 (280-300); Potassium 3.3 mEq/L (3.5-4.5); Sodium 136 mEq/L (136-145); eGFR For African Americans > 60 (> 60); eGFR For Non-African Americans > 60 (> 60)
--- NOTE | 2017-08-09 09:09 | Electrocardiograph Report ---
[address] [address] Test Date: 2017-08-09 Pat Name: Janine Velasquez Department: 114 Room: [facility] Gender: F [employer] Professional: MAYI : 1975 Requested By: Monet Washburn Order Number: [id number] Reading MD: Carissa Menendez Measurements Intervals [place] Rate: 122 P: 33 NC: 128 QRS: 66 QRSD: 84 T: 30 QT: 338 QTc: 410 Interpretive Statements SINUS TACHYCARDIA POSSIBLE RIGHT VENTRICULAR CONDUCTION DELAY NONSPECIFIC T-WAVE ABNORMALITY ABNORMAL RHYTHM ECG Electronically Signed On 08-09-2017 9:07:29 EDT by Carissa Menendez
[2017-08-09] MEDS ORDERED: Potassium Chloride Elixir 20 MEQ/15 ML UDC PO ONE (12:58)
[2017-08-09] MEDS: 0.9 % Sodium Chloride 1,000 ML IVC SCH ×2 (13:33→15:25)
[2017-08-09] MEDS ORDERED: *HR* Metoprolol 5 MG/5 ML VIAL IVP ONE (16:37)
--- NOTE | 2017-08-09 16:44 | Internal Medicine Consult Note ---
Date of Encounter: 08/09/17 Time of Encounter: 16:41 - Assessment and Plan (1) Tachycardia Current Visit: Yes Status: Acute Assessment and plan: She had brief episode of somnolence in the ward clerk which resolved. She is currently tachycardic but denies fatigue, chest pain, palpitations, SOB, diaphoresis, numbness/tingling. BMP was unremarkable other than potassium borderline low at 3.3. CBC showed borderline elevated white count at 11.5 without any bandemia. Hemoglobin was 8.9 at 3 AM and also 9 AM today. Yesterday hemoglobin was 10.0 and two days ago it was 11.9. This likely is related to post-operative state, she does not show any signs of active bleed. She has been asymptomatic later in the morning and states she feels better after a nap. She is likely tachycardic from hypovolemia, could have anemia component as well. We will give her 2 L normal saline bolus followed by 100 cc/ hr of normal saline and re-evaluate her in AM. Imaging should only be warranted if she does not correct with fluids. Continue to monitor H&H. I suggest transfusing patient if hemoglobin drops below 7.0. Recheck BMP in AM and replace potassium. (2) Fatigue Current Visit: Yes Status: Resolved Assessment and plan: Patient states she is energetic right now after taking a nap. Qualifiers: Fatigue type: unspecified Qualified Code(s): R53.83 - Other fatigue (3) Osteoarthritis of right knee Current Visit: No Status: Chronic Qualifiers: Osteoarthritis type: unspecified Qualified Code(s): M17.11 - Unilateral primary osteoarthritis, right knee (4) HTN (hypertension) Current Visit: No Status: Chronic Qualifiers: Hypertension type: unspecified Qualified Code(s): I10 - Essential (primary ) hypertension (5) HLD (hyperlipidemia) Current Visit: No Status: Chronic Qualifiers: Hyperlipidemia type: unspecified Qualified Code(s): E78.5 - Hyperlipidemia , unspecified (6) COPD (chronic obstructive pulmonary disease) Current Visit: No Status: Chronic Qualifiers: COPD type: unspecified COPD Qualified Code(s): J44.9 - Chronic obstructive pulmonary disease, unspecified (7) Tobacco abuse Current Visit: No Status: Chronic (8) Bipolar disorder Current Visit: No Status: Chronic Qualifiers: Active/Remission status: remission status unspecified Qualified Code(s): F31.9 - Bipolar disorder, unspecified (9) OAB (overactive bladder) Current Visit: No Status: Chronic (10) Diabetes mellitus Current Visit: No Status: Chronic Qualifiers: Diabetes mellitus type: type 2 Diabetes mellitus complication status: with unspecified complications Diabetes mellitus terminal makeup operator insulin use: without skilled nursing use Qualified Code(s): E11.8 - Type 2 diabetes mellitus with unspecified complications (11) Acute blood loss anemia Current Visit: Yes Status: Acute Internal Medicine - CN: HPI - Data of Consult Consult date: 08/09/17 Requesting Physician: Rainer Haddad MD - Consult Narrative Reason for consult: Tachycardia History of present illness: Ms. Velasquez is a 42 year old female with PMH of COPD, HTN, bipolar disorder, is here status post right total knee replacement two days ago. We are consulted for tachycardia that patient developed today. She tolerated procedure well without complications. She was to be discharged home today but she required more pain control as well as acute blood loss anemia, which is now stable. This morning she was noted to be tachycardic with HR 110-120s and somnolent. She denies chest pain, shortness of breath, palpitations/flutters, diaphoresis, dizziness, fevers/chills, nausea/vomiting, diarrhea, abdominal pain, dysuria, headache. She does recall this event, she describes as fatigue. She states she feels significantly better now. Past Med Surg Social Fam HX - Past Medical History Medical history: asthma, COPD, GERD, renal disease Psychiatric history: anxiety, ADHD, bipolar, depression - Past Surgical History Surgical History: , cholecystectomy, other - Social History Smoking Status: Current every day smoker Packs per day: 1/2-1 Smokeless Tobacco Status: No Alcohol use: none Drug use: none - Family History Father Hx Family Endocrine Disorder: Yes (Diabetes) Mother Hx Family Cardiac Disorders: Yes (Heart disease, [place]) - Constitutional Constitutional: fatigue (Patient denies this, but was reported by multiple staff members that she appeared fatigued and somnolent.), no anorexia, no excessive sweating, no fever(s), no lethargy, no night sweats, no weakness - EENT Nose, mouth and throat: dry mouth, no facial pain, no hoarseness, no throat swelling - Cardiovascular Cardiovascular ROS IM: diaphoresis, no chest pain, no dyspnea, no irregular heart rhythm, no lightheadedness, no orthopnea, no palpitations, no syncope - Respiratory Respiratory: no cough, no dyspnea, no wheezing, no stridor, no chest congestion - Gastrointestinal Gastrointestinal: no abdominal pain, no diarrhea, no early satiety, no loose stools, no nausea, no vomiting - Genitourinary Genitourinary: no difficulty voiding, no dysuria, no flank pain - Musculoskeletal Musculoskeletal ROS IM: no muscle weakness, no myalgias, no numbness, no stiffness, no tingling - Integumentary Integumentary IM: no rash - Neurological Neurological ROS: no abnormal speech, no behavioral changes, no confusion, no dizziness, no headache(s) - Psychiatric Psychiatric: no anxiety, no change in appetite - Endocrine Endocrine IM: no cold intolerance, no fatigue, no flushing - Hematologic/Lymphatic Hematologic/Lymphatic: no lymphadenopathy Internal Medicine - CN: Meds OxyCODONE Immed Rel [Roxicodone 5 MG] 5 mg PO Q6HR PRN 7 Days #28 tablet [Rx] Amitriptyline [Elavil] 25 mg PO HS 08/07/17 [History] Atorvastatin [Lipitor] 40 mg PO HS 08/07/17 [History] Benzonatate [Tessalon] 100 - 200 mg PO TID PRN 08/07/17 [History] Benztropine [Cogentin] 0.5 mg PO HS 08/07/17 [History] Diclofenac Sodium 1 appl TP TID PRN 08/07/17 [History] Divalproex (12 HR) [Depakote (12 HR)] 500 mg PO BID 08/07/17 [History] Doxepin HCl 75 mg PO HS 08/07/17 [History] Fexofenadine HCl [Allergy Relief] 180 mg PO DAILY 08/07/17 [History] Fluticasone Propionate Nasal [Flonase] 2 spray NS BID 08/07/17 [History] Gabapentin [Neurontin] 300 mg PO HS 08/07/17 [History] HydrOXYzine Pamoate [Vistaril] 100 mg PO QID 08/07/17 [History] Ketoconazole 2% CRM [Nizoral Cream] 1 appl TP BID 08/07/17 [History] Lurasidone HCl [Latuda] 80 mg PO HS 08/07/17 [History] Mirabegron [Myrbetriq] 50 mg PO QAM 08/07/17 [History] Mometasone/Formoterol [Dulera 100 Mcg/5 Mcg Inhaler] 2 gm IH BID 08/07/17 [ History] Montelukast [Singulair] 10 mg PO DAILY 08/07/17 [History] Naproxen 500 mg PO BID PRN 08/07/17 [History] Onabotulinumtoxina [Botox] 0 unit IJ Q3M 08/07/17 [History] Pantoprazole Sodium 40 mg PO BID 08/07/17 [History] Pregabalin [Lyrica] 100 mg PO TID 08/07/17 [History] SUMAtriptan Succinate [Imitrex] 100 mg PO DAILY PRN MDD 200MG 08/07/17 [History] Triamcinolone Acetonide [Nasacort] 2 spr NS BID 08/07/17 [History] metFORMIN [Glucophage] 500 mg PO DAILY 08/07/17 [History] raNITIdine HCl [Ranitidine HCl] 300 mg PO HS 08/07/17 [History] 3 Allergy/AdvReac Type Severity Reaction Status Date / Time oxybutynin Allergy Swelling Verified 08/07/17 08:31 promethazine [From Phenergan] AdvReac Vomiting Verified 08/07/17 08:31 Internal Medicine - CN: Exam - Constitutional Vitals: Temp Pulse Resp BP Pulse Ox 98.7 F 116 16 131/72 100 08/09/17 15:33 08/09/17 15:33 08/09/17 15:33 08/09/17 15:33 08/09/17 15:33 General appearance IM: Present: cooperative, A&O X 3, no acute distress, answers questions appropriately - Head Head exam: Present: atraumatic, normocephalic - Expanded Head Exam Head exam expanded IM: Absent: contusion, general tenderness, laceration - Eye Eye exam: Present: EOMI, normal appearance, PERRL. Absent: conjunctival injection, nystagmus, scleral icterus Pupils: Present: PERRL - ENT ENT exam: Present: mucous membranes dry Additional comments: Unable to chew food from dry mouth. - Expanded ENT Exam Mouth exam: Present: dry mucosa Throat exam: Present: normal inspection - Neck Neck exam general surgery: Absent: lymphadenopathy - Respiratory Respiratory exam: Present: CTAB. Absent: accessory muscle use, rales, respiratory distress, rhonchi, stridor, wheezes, tachypnea - Cardiovascular Cardiovascular exam IM: Present: tachycardia. Absent: bradycardia, irregular rhythm, systolic murmur - Expanded Cardiovascular Exam Peripheral pulses: 2+: Carotid (L) PM, Carotid (R) PM, Radial (L), Radial (R), Dorsalis Pedis (L) PM, Dorsalis Pedis (R) PM - GI/Abdominal GI/Abdominal exam IM: Present: soft. Absent: distended, tenderness - Extremities Exam Extremities exam IM: Present: full ROM, normal capillary refill. Absent: calf tenderness, cyanotic, pedal edema - Neurological Exam Neurological exam: Present: alert, oriented X3, reflexes normal, no focal deficits, strengths equal and symetr throughout - Skin Skin exam IM: Present: dry, intact, warm. Absent: diaphoretic Internal Medicine - CN: Reslt - Labs CBC & Chem 7: 08/09/17 08:37 08/09/17 08:37 Labs: Short CBC 08/09/17 08/09/17 Range/Units 03:35 08:37 WBC 11.5 H (4.3-11.1) K/mcL Hgb 8.9 L 8.9 L (11.5-15.4) g/dL Hct 26.0 L 25.4 L (35.3-44.9) % Plt Count 241 (140-400) K/mcL Neutrophils # 6.9 (1.6-8.9) K/mcL BMP 08/09/17 08/09/17 03:35 08:37 Sodium 136 136 Potassium 3.5 D 3.3 L Chloride 100 101 Carbon Dioxide 27 26 BUN 10 10 Creatinine 0.84 0.84 Glucose 109 H 95 Calcium 8.8 8.7 - EKG Data -: EKG Interpreted by Myself EKG shows normal: sinus rhythm (Tachycardic with no st/t wave changes) - Impressions Sinus tachycardia Consult Discharge Plan - Plan Additional Instructions: Discharge Instructions: Total Knee Replacement Please call [facility] ([phone]), your Primary Care Physician, or report to the Emergency Room if you have any of the following symptoms: Nausea, vomiting, fever greater that 101.5, swelling, chest pain, shortness of breath, increased pain/redness/drainage/odor for your incision site, numbness/ tingling, or any other concerning symptoms. ACTIVITY:Weight-bearing as tolerated. You may progress off support (crutches or walker) as tolerated. MEDICATIONS: Upon discharge resume your home medications. Take all the medications as prescribed. Take a stool softener if taking narcotic pain medications. Stool softeners are only effective if you drink enough fluids. Drink 6-8 glass of water or fluids a day, unless this is not allowed for another health problem. Despite using stool softeners, if you haven't had a bowel movement in 3 days, please switch to a gentle laxative. Gentle laxatives are sold over the counter. You should have a bowel movement within 24 hours, if not call the office. You will be discharged from the hospital with a prescription for pain medication. You are encouraged to decrease the use of narcotic pain medication as tolerated. Should you require a refill, please call the office. [facility] prescribes narcotic pain medication for only 4-6 weeks after surgery. If you require pain medication beyond this time period, you may be referred to your Primary Care Physician or to the Pain Clinic for further evaluation. Plan ahead for refills on pain medication as many narcotics either need to be picked up at the office or mailed. It is best to call 48-72 hours in advance of needing a prescription refill so you don't run out of medication. To help control the post-operative pain, you may take NSAIDs (Aleve,Advil, Motrin, Ibuprofen, Naprosyn) or Tylenol as prescribed on the bottle in addition to the pain medication. ANTICOAGULATION (blood thinners): Continue your Aspirin, Lovenox or Coumadin as prescribed to help prevent a blood clot in the leg or in the lungs. As long as your incision remains dry and you tolerate the NSAIDs (Aleve, Advil, Motrin, ibuprofen, naprosyn), it is OK to use the NSAIDS while you are taking your anticoagulation medication. Should your incision start to drain, stop the NSAID and contact our office. Common symptoms of blood clot in the legs include: localized pain, swelling, calf tenderness, redness or discoloration of the skin. Blood clot in the lung symptoms include: shortness of breath, rapid pulse, sweating, and chest pain that worsens with deep breathing, coughing up blood, lightheadedness, feelings of anxiety. If you experience any of these symptoms notify your physician immediately, go to the emergency room, or if having trouble breathing, call 911. WOUND CARE: Leave the dressing on for 7 to 10days. You may change the dressing if it becomes saturated greater than 50%. Do not get the dressing wet at anytime. Wash your hands with antibacterial soap, rinse and dry prior to any wound care. If you have hero the visiting nurse or rehab facility can remove the stapes 10-14 days [address] surgery [address] steri-strips across the wound. Leave the steri-strips in place until they fall off on their won. You may let water from the shower run on top of the steri-strips. If you do not have a visiting nurse or rehab facility, you will need to return to the office at 10-14 days for the hero to be removed. If you have itching or redness around the dressing call the office. FOLLOW-UP: Please follow up with your surgeon in the orthopedic clinic in 4 weeks from the day of surgery. If you have hero that need to be removed, you will need to come back to the office in 10-14 days from the day of surgery. Referrals: Rainer Haddad MD [Partnered Physician] - 09/03/17 9:55 am Monet Washburn PAC [Physician Tint Layer] - 08/15/17 10:15 am (& also Saturday at 10:45 AM) Ann Mondragon MD [Partnered Physician] - 01/13/18 2:00 pm Zoya Ocampo CNP [Primary Care Provider] - 08/16/17 11:15 am
[2017-08-09] MEDS ORDERED: 0.9 % Sodium Chloride 1,000 ML IVC SCH (17:30)
[2017-08-09] MEDS ORDERED: Furosemide 20 MG/2 ML VIAL IVP ONE (20:17)
[2017-08-09] MEDS: Gabapentin 300 MG CAPSULE PO SCH (21:20)
[2017-08-09] MEDS: Famotidine 20 MG TABLET PO SCH (21:21)
[2017-08-09] MEDS ORDERED: 0.9 % Sodium Chloride 250 ML ONE (23:11)
[2017-08-10] MEDS: Ipratropium/Albuterol Neb 3 ML IH SCH ×3 (03:16→16:18)
[2017-08-10] MEDS: *HR* Enoxaparin 30 MG/0.3 ML SYRINGE SQ SCH (04:42)
[2017-08-10] MEDS: *HR* OxyCODONE Immed Rel 5 MG TABLET PO PRN ×3 (04:43→14:17)
[2017-08-10 05:40] LABS: BUN/Creatinine Ratio 12 (6-26); Blood Urea Nitrogen 9 mg/dL (7-20); Calcium 8.5 mg/dL (8.6-10.8); Carbon Dioxide 24 mEq/L (19-29); Chloride 106 mEq/L (98-109); Glucose 90 mg/dL (70-99); Osmolality,Calculated 282 (280-300); Potassium 3.4 mEq/L (3.5-4.5); Sodium 137 mEq/L (136-145); eGFR For African Americans > 60 (> 60); eGFR For Non-African Americans > 60 (> 60)
--- NOTE | 2017-08-10 07:30 | Orthopedics Progress Note ---
Date of Encounter: 08/10/17 Time of Encounter: 07:29 - Assessment and Plan (1) Status post right knee replacement Current Visit: Yes Status: Acute (2) Osteoarthritis of right knee Current Visit: No Status: Chronic Qualifiers: Osteoarthritis type: unspecified Qualified Code(s): M17.11 - Unilateral primary osteoarthritis, right knee (3) HTN (hypertension) Current Visit: No Status: Chronic Qualifiers: Hypertension type: unspecified Qualified Code(s): I10 - Essential (primary ) hypertension (4) HLD (hyperlipidemia) Current Visit: No Status: Chronic Qualifiers: Hyperlipidemia type: unspecified Qualified Code(s): E78.5 - Hyperlipidemia , unspecified (5) COPD (chronic obstructive pulmonary disease) Current Visit: No Status: Chronic Qualifiers: COPD type: unspecified COPD Qualified Code(s): J44.9 - Chronic obstructive pulmonary disease, unspecified (6) Tobacco abuse Current Visit: No Status: Chronic (7) Bipolar disorder Current Visit: No Status: Chronic Qualifiers: Active/Remission status: remission status unspecified Qualified Code(s): F31.9 - Bipolar disorder, unspecified (8) OAB (overactive bladder) Current Visit: No Status: Chronic (9) Diabetes mellitus Current Visit: No Status: Chronic Qualifiers: Diabetes mellitus type: type 2 Diabetes mellitus complication status: with unspecified complications Diabetes mellitus terminal gauger insulin use: without terminal gauger use Qualified Code(s): E11.8 - Type 2 diabetes mellitus with unspecified complications (10) Acute blood loss anemia Current Visit: Yes Status: Acute Subjective Interval history: Patient was seen this morning doing well without complaints. Afebrile vital signs stable. Operative extremity: Neurovascularly intact Dressing clean dry and intact Calves nontender Assessment and plan: Continue with postoperative care Patient received 1 unit of blood last night due to symptomatic anemia we will check H&H and discharged today patient looks very good no complaints Objective Vital signs: Vital Signs Temp Pulse Resp BP Pulse Ox 08/10/17 07:03 98.2 F 110 18 114/76 95 08/10/17 02:30 99.4 F 116 16 119/70 94 08/09/17 23:35 99.2 F 121 16 112/74 94 08/09/17 23:20 99.4 F 131 16 128/76 08/09/17 22:30 20 95 08/09/17 21:00 98.2 F 112 15 103/68 99 08/09/17 19:55 99.4 F 95 18 154/79 95 08/09/17 15:33 98.7 F 116 16 131/72 100 08/09/17 11:18 98.9 F 118 14 135/72 94 08/09/17 07:30 98.4 F 122 14 124/85 95 Intake and Output 08/09/17 08/09/17 08/10/17 15:59 23:59 07:59 Intake Total 1940 / 1940 600 / 600 350 / 350 Output Total 2200 / 2200 900 / 900 Balance -260 / -260 -300 / -300 350 / 350 Intake: IV Fluids 1500 / 1500 0.9 % Sodium Chloride 1,000 ML 1000 / 1000 @ 3750 mls/hr IVC .Q16M ROX Rx# :[id number] 0.9 % Sodium Chloride 500 ML @ 500 / 500 1875 mls/hr IVC .Q16M ONE Rx#: [id number] Oral 440 / 440 250 / 250 Blood Product 350 / 350 350 / 350 Rbcs Leuko Poor As-1 Unit 350 / 350 350 / 350 [id number] Output: Urine 2200 / 2200 900 / 900 Other: Meal Lunch Dinner Percent of Meal Consumed 50% 40% Blood Glucose* 129 139 131 - Labs CBC & BMP: 08/09/17 08:37 08/10/17 04:39 Labs: Abnormal lab results WBC 11.5 K/mcL (4.3-11.1) H 08/09/17 08:37 RBC 2.88 M/mcL (3.82-4.97) L 08/09/17 08:37 Hgb 8.9 g/dL (11.5-15.4) L 08/09/17 08:37 Hct 25.4 % (35.3-44.9) L 08/09/17 08:37 Potassium 3.4 mEq/L (3.5-4.5) L 08/10/17 04:39 POC Glucose 139 (58-89) H 08/09/17 19:59 Calcium 8.5 mg/dL (8.6-10.8) L 08/10/17 04:39 - VTE Documentation of Mechanical Device: Venous foot pump, device Consult Discharge Plan - Plan Additional Instructions: Discharge Instructions: Total Knee Replacement Please call [facility] ([phone]), your Primary Care Physician, or report to the Emergency Room if you have any of the following symptoms: Nausea, vomiting, fever greater that 101.5, swelling, chest pain, shortness of breath, increased pain/redness/drainage/odor for your incision site, numbness/ tingling, or any other concerning symptoms. ACTIVITY:Weight-bearing as tolerated. You may progress off support (crutches or walker) as tolerated. MEDICATIONS: Upon discharge resume your home medications. Take all the medications as prescribed. Take a stool softener if taking narcotic pain medications. Stool softeners are only effective if you drink enough fluids. Drink 6-8 glass of water or fluids a day, unless this is not allowed for another health problem. Despite using stool softeners, if you haven't had a bowel movement in 3 days, please switch to a gentle laxative. Gentle laxatives are sold over the counter. You should have a bowel movement within 24 hours, if not call the office. You will be discharged from the hospital with a prescription for pain medication. You are encouraged to decrease the use of narcotic pain medication as tolerated. Should you require a refill, please call the office. [facility] prescribes narcotic pain medication for only 4-6 weeks after surgery. If you require pain medication beyond this time period, you may be referred to your Primary Care Physician or to the Pain Clinic for further evaluation. Plan ahead for refills on pain medication as many narcotics either need to be picked up at the office or mailed. It is best to call 48-72 hours in advance of needing a prescription refill so you don't run out of medication. To help control the post-operative pain, you may take NSAIDs (Aleve,Advil, Motrin, Ibuprofen, Naprosyn) or Tylenol as prescribed on the bottle in addition to the pain medication. ANTICOAGULATION (blood thinners): Continue your Aspirin, Lovenox or Coumadin as prescribed to help prevent a blood clot in the leg or in the lungs. As long as your incision remains dry and you tolerate the NSAIDs (Aleve, Advil, Motrin, ibuprofen, naprosyn), it is OK to use the NSAIDS while you are taking your anticoagulation medication. Should your incision start to drain, stop the NSAID and contact our office. Common symptoms of blood clot in the legs include: localized pain, swelling, calf tenderness, redness or discoloration of the skin. Blood clot in the lung symptoms include: shortness of breath, rapid pulse, sweating, and chest pain that worsens with deep breathing, coughing up blood, lightheadedness, feelings of anxiety. If you experience any of these symptoms notify your physician immediately, go to the emergency room, or if having trouble breathing, call 911. WOUND CARE: Leave the dressing on for 7 to 10days. You may change the dressing if it becomes saturated greater than 50%. Do not get the dressing wet at anytime. Wash your hands with antibacterial soap, rinse and dry prior to any wound care. If you have hero the visiting nurse or rehab facility can remove the stapes 10-14 days after surgery and place steri-strips across the wound. Leave the steri-strips in place until they fall off on their won. You may let water from the shower run on top of the steri-strips. If you do not have a visiting nurse or rehab facility, you will need to return to the office at 10-14 days for the hero to be removed. If you have itching or redness around the dressing call the office. FOLLOW-UP: Please follow up with your surgeon in the orthopedic clinic in 4 weeks from the day of surgery. If you have hero that need to be removed, you will need to come back to the office in 10-14 days from the day of surgery. Referrals: Rainer Haddad MD [Partnered Physician] - 09/03/17 9:55 am Monet Washburn PAC [Physician C Web Developer] - 08/15/17 10:15 am (& also Saturday at 10:45 AM) Ann Mondragon MD [Partnered Physician] - 01/13/18 2:00 pm Zoya Ocampo CNP [Primary Care Provider] - 08/16/17 11:15 am
[2017-08-10] MEDS: Insulin LISPRO 300 UNITS/3 ML VIAL SQ SCH ×3 (07:39→17:29)
[2017-08-10 07:46] LABS: Hematocrit 25.2 % (35.3-44.9); Hemoglobin 8.7 g/dL (11.5-15.4)
[2017-08-10] MEDS: *HR* Metformin 500 MG TABLET PO SCH (08:04)
[2017-08-10] MEDS: Pregabalin 50 MG CAPSULE PO SCH ×2 (08:05→15:31)
[2017-08-10] MEDS: Loratadine 10 MG TABLET PO SCH (08:05)
[2017-08-10] MEDS: Divalproex (12 HR) 500 MG TABLET PO SCH (08:05)
[2017-08-10] MEDS: Fluticasone Propionate Nasal 50 MCG/SPRAY BOTTLE NS SCH ×2 (08:06)
[2017-08-10] MEDS: hydrOXYzine pamoate 25 MG CAPSULE PO SCH ×2 (08:07→14:31)
[2017-08-10] MEDS: Ketoconazole 2% CRM 15 GM TUBE TP SCH (08:07)
[2017-08-10] MEDS: [UNRECOGNIZED DRUG - MIXTURE] TP SCH ×3 (08:08→17:29)
[2017-08-10] MEDS: (Mirabegron [Myrbetriq] 50 MG) PO SCH (08:09)
--- NOTE | 2017-08-10 10:38 | Internal Med Progress Note ---
Date of Encounter: 08/10/17 Time of Encounter: 10:36 - Assessment and plan (1) Tachycardia Status: Acute Assessment and plan: Asymptomatic Reviewed prior visits, notably office visits pre-op exams. She seems to have tachycardia at baseline. She should follow-up with primary care provider in case they would like to do further workup or if she becomes symptomatic. Suggest nicotine cessation which further increases heart rate. (2) Fatigue Status: Resolved Qualifiers: Fatigue type: unspecified Qualified Code(s): R53.83 - Other fatigue (3) Osteoarthritis of right knee Status: Chronic Qualifiers: Osteoarthritis type: unspecified Qualified Code(s): M17.11 - Unilateral primary osteoarthritis, right knee (4) HTN (hypertension) Status: Chronic Qualifiers: Hypertension type: unspecified Qualified Code(s): I10 - Essential (primary ) hypertension (5) HLD (hyperlipidemia) Status: Chronic Qualifiers: Hyperlipidemia type: unspecified Qualified Code(s): E78.5 - Hyperlipidemia , unspecified (6) COPD (chronic obstructive pulmonary disease) Status: Chronic Qualifiers: COPD type: unspecified COPD Qualified Code(s): J44.9 - Chronic obstructive pulmonary disease, unspecified (7) Tobacco abuse Status: Chronic (8) Bipolar disorder Status: Chronic Qualifiers: Active/Remission status: remission status unspecified Qualified Code(s): F31.9 - Bipolar disorder, unspecified (9) OAB (overactive bladder) Status: Chronic (10) Diabetes mellitus Status: Chronic Qualifiers: Diabetes mellitus type: type 2 Diabetes mellitus complication status: with unspecified complications Diabetes mellitus assistant terminal manager insulin use: without assistant terminal manager use Qualified Code(s): E11.8 - Type 2 diabetes mellitus with unspecified complications (11) Acute blood loss anemia Status: Acute - Subjective Interval history: No acute events overnight. Patient feels well. - Constitutional Vitals: Temp Pulse Resp BP Pulse Ox 98.2 F 110 20 114/76 97 08/10/17 07:03 08/10/17 07:03 08/10/17 09:30 08/10/17 07:03 08/10/17 09:30 General appearance: Present: cooperative, A&O X 3, no acute distress, answers questions appropriately Exam: - Head Head exam: Present: atraumatic, normocephalic - Expanded Head Exam Head exam expanded IM: Absent: contusion, general tenderness, laceration - Eye Eye exam: Present: EOMI, normal appearance, PERRL. Absent: conjunctival injection, nystagmus, scleral icterus Pupils: Present: PERRL - ENT ENT exam: Present: mucous membranes dry Additional comments: Unable to chew food from dry mouth. - Expanded ENT Exam Mouth exam: Present: dry mucosa Throat exam: Present: normal inspection - Neck Neck exam general surgery: Absent: lymphadenopathy - Respiratory Respiratory exam: Present: CTAB. Absent: accessory muscle use, rales, respiratory distress, rhonchi, stridor, wheezes, tachypnea - Cardiovascular Cardiovascular exam IM: Present: tachycardia. Absent: bradycardia, irregular rhythm, systolic murmur - Expanded Cardiovascular Exam Peripheral pulses: 2+: Carotid (L) PM, Carotid (R) PM, Radial (L), Radial (R), Dorsalis Pedis (L) PM, Dorsalis Pedis (R) PM - GI/Abdominal GI/Abdominal exam IM: Present: soft. Absent: distended, tenderness - Extremities Exam Extremities exam IM: Present: full ROM, normal capillary refill. Absent: calf tenderness, cyanotic, pedal edema - Neurological Exam Neurological exam: Present: alert, oriented X3, reflexes normal, no focal deficits, strengths equal and symetr throughout - Skin Skin exam IM: Present: dry, intact, warm. Absent: diaphoretic Internal Medicine: Result - Labs CBC & Chem 7: 08/10/17 06:55 08/10/17 04:39 Labs: Short CBC 08/10/17 Range/Units 06:55 Hgb 8.7 L (11.5-15.4) g/dL Hct 25.2 L (35.3-44.9) % BMP 08/10/17 04:39 Sodium 137 Potassium 3.4 L Chloride 106 Carbon Dioxide 24 BUN 9 Creatinine 0.76 Glucose 90 Calcium 8.5 L - VTE Documentation of Mechanical Device: Venous foot pump, device Consult Discharge Plan - Plan Additional Instructions: Discharge Instructions: Total Knee Replacement Please call [facility] ([phone]), your Primary Care Physician, or report to the Emergency Room if you have any of the following symptoms: Nausea, vomiting, fever greater that 101.5, swelling, chest pain, shortness of breath, increased pain/redness/drainage/odor for your incision site, numbness/ tingling, or any other concerning symptoms. ACTIVITY:Weight-bearing as tolerated. You may progress off support (crutches or walker) as tolerated. MEDICATIONS: Upon discharge resume your home medications. Take all the medications as prescribed. Take a stool softener if taking narcotic pain medications. Stool softeners are only effective if you drink enough fluids. Drink 6-8 glass of water or fluids a day, unless this is not allowed for another health problem. Despite using stool softeners, if you haven't had a bowel movement in 3 days, please switch to a gentle laxative. Gentle laxatives are sold over the counter. You should have a bowel movement within 24 hours, if not call the office. You will be discharged from the hospital with a prescription for pain medication. You are encouraged to decrease the use of narcotic pain medication as tolerated. Should you require a refill, please call the office. [facility] prescribes narcotic pain medication for only 4-6 weeks after surgery. If you require pain medication beyond this time period, you may be referred to your Primary Care Physician or to the Pain Clinic for further evaluation. Plan ahead for refills on pain medication as many narcotics either need to be picked up at the office or mailed. It is best to call 48-72 hours in advance of needing a prescription refill so you don't run out of medication. To help control the post-operative pain, you may take NSAIDs (Aleve,Advil, Motrin, Ibuprofen, Naprosyn) or Tylenol as prescribed on the bottle in addition to the pain medication. ANTICOAGULATION (blood thinners): Continue your Aspirin, Lovenox or Coumadin as prescribed to help prevent a blood clot in the leg or in the lungs. As long as your incision remains dry and you tolerate the NSAIDs (Aleve, Advil, Motrin, ibuprofen, naprosyn), it is OK to use the NSAIDS while you are taking your anticoagulation medication. Should your incision start to drain, stop the NSAID and contact our office. Common symptoms of blood clot in the legs include: localized pain, swelling, calf tenderness, redness or discoloration of the skin. Blood clot in the lung symptoms include: shortness of breath, rapid pulse, sweating, and chest pain that worsens with deep breathing, coughing up blood, lightheadedness, feelings of anxiety. If you experience any of these symptoms notify your physician immediately, go to the emergency room, or if having trouble breathing, call 911. WOUND CARE: Leave the dressing on for 7 to 10days. You may change the dressing if it becomes saturated greater than 50%. Do not get the dressing wet at anytime. Wash your hands with antibacterial soap, rinse and dry prior to any wound care. If you have hero the visiting nurse or rehab facility can remove the stapes 10-14 days [address] surgery [address] steri-strips across the wound. Leave the steri-strips in place until they fall off on their won. You may let water from the shower run on top of the steri-strips. If you do not have a visiting nurse or rehab facility, you will need to return to the office at 10-14 days for the hero to be removed. If you have itching or redness around the dressing call the office. FOLLOW-UP: Please follow up with your surgeon in the orthopedic clinic in 4 weeks from the day of surgery. If you have hero that need to be removed, you will need to come back to the office in 10-14 days from the day of surgery. Referrals: Rainer Haddad MD [Partnered Physician] - 09/03/17 9:55 am Monet Washburn PAC [Physician Director Of Cardiac Rehabilitation] - 08/15/17 10:15 am (& also Saturday , August 23, 2017 at 10:45 AM) Ann Mondragon MD [Partnered Physician] - 01/13/18 2:00 pm Zoya Ocampo CNP [Primary Care Provider] - 08/16/17 11:15 am
[2017-08-10 11:33] VITALS: BP 118/76
== END 2017-08-10 18:05 | disposition home or self-care (01) | DRG 302 ==
LOC: SAMDAY 08:07 → 3NENU 12:53
PROVIDERS: ADMIT Orthopaedic Surgery; ATTEND Orthopaedic Surgery